=== PATIENT | female | born 1985 | race Caucasian/White ===

== ENCOUNTER 2022-03-09 16:05 | Emergency (ER) | payer BC ==
--- OUTSIDE RECORDS SUMMARY | 2022-03-09 16:07 | XMS REPORT | Continuity of Care Document ---
:1985 Author Organization [facility] t Address [address] [place] [address] Dr. Reynolds [address] [place] [id number] Care Team Providers Name Role Phone Unavailable Unavailable Unavailable Problems This patient has no known problems. Allergies, Adverse Reactions, Alerts This patient has no known allergies or adverse reactions. Medications This patient has no known medications. Procedures This patient has no known procedures. Results This patient has no known results.
--- NOTE | 2022-03-09 17:55 | RAD REPORT ---
EXAM DESCRIPTION: RAD - Lumbar Spine 3 Views - 03/09/2022 5:47 pm CLINICAL HISTORY: PAIN COMPARISON: LUMBAR SPINE 3 VIEWS dated 11/21/2011 FINDINGS: A three-view lumbar spine examination was performed. Lumbar bodies are normal in height and alignment. No fracture or acute bony process seen. L4-5 disc s pace narrowing has developed from prior imaging along with endplate spurring. There is calcification along the posterior aspect of the disc that is probably part of disc protrusion into the central trav l. No significant facet joint degenerative change. No pars defects identified. IMPRESSION: L4-5 degenerative disc disease with probable bulging or protruding disc material in the central canal. No fracture or acute bone finding identified. The possible disc herniation findings can be further addressed with an outpatient MRI study.
--- NOTE | 2022-03-09 17:56 | RAD REPORT ---
EXAM DESCRIPTION: RAD - Thoracic Spine Ap/Lat - 03/09/2022 5:47 pm CLINICAL HISTORY: PAIN COMPARISON: <Comparisons> FINDINGS: AP & lateral views of the thoracic spine were obtained. Thoracic bodies are normal in height and alignment. There are no acute or destructive bony processes seen. No disc space narrowing. No paraspinal masses are identified. IMPRESSION: Negative thoracic spine examination.
[2022-03-09] MEDS ORDERED: KETOROLAC 30 MG/ML INJ ONE (19:36)
[2022-03-09] MEDS ORDERED: MORPHINE 4 MG/ML SYR ONE (19:36)
[2022-03-09] MEDS ORDERED: LIDOCAINE 4% PATCH ONE (19:37)
--- NOTE | 2022-03-09 20:16 | ER ---
Nurse's Notes [facility] Name: Mitzi Cervantes Age: 36 yrs Sex: Female : 1985 Arrival Date: 03/09/2022 Time: 16:08 Bed 5 Private MD: Diagnosis: Lumbago with sciatica, left side Presentation: 03/09 16:34 Chief complaint: Patient states: mid-low back pain radiating to left buttocks that aa5 began 2-3 days ago. 16:35 Coronavirus screen: At this time, the client does not indicate any symptoms associated aa5 with coronavirus-19. Ebola Screen: Patient denies travel to an Ebola-affected area in the 21 days before illness onset. Initial Sepsis Screen: Does the patient meet any 2 criteria? HR > 90 bpm. Does the patient have a suspected source of infection? No. Patient's initial sepsis screen is negative. Risk Assessment: Do you want to hurt yourself or someone else? Patient reports no desire to harm self or others. Onset of symptoms was February 2022. 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 - Social history:: Smoking status: Patient denies any tobacco usage or history of. Screenin:43 Abuse screen: Denies threats or abuse. Denies injuries from another. Nutritional iw screening: No deficits noted. Tuberculosis screening: No symptoms or risk factors identified. Fall Risk None identified. Assessment: 19:42 General: Appears in no apparent distress. Behavior is calm, cooperative. Pain: iw Complains of pain in lumbar area and left low back. Neuro: Level of Consciousness is awake, alert, obeys commands, Oriented to person, place, time, situation, Moves all extremities. Full function. Cardiovascular: Patient's skin is warm and dry. Derm: Skin is intact, is healthy with good turgor. Musculoskeletal: Range of motion: intact in all extremities, Reports pain in back. 19:43 Reassessment:. iw Vital Signs: 16:35 BP 140 / 77; Pulse 96; Resp 16 S; Temp 97.6(TE); Pulse Ox 99% on R/A; aa5 ED Course: 16:08 Patient arrived in ED. rg4 16:20 Toby Toney PA is PHCP. cp 16:20 Toby Gonsalves MD is Attending Physician. cp 16:34 Arm band placed on. aa5 16:35 Triage completed. aa5 17:49 XRAY Lumbar Spine (3 Views) In Process Unspecified. EDMS 17:49 XRAY Thoracic Spine (Ap/lat) In Process Unspecified. EDMS 19:28 Giancarlo Solomon, KAUR is Primary Nurse. as6 19:43 No provider procedures requiring assistance completed. Patient did not have IV access iw during this emergency room visit. 20:46 Patient has correct armband on for positive identification. kl Administered Medications: 19:41 Drug: Lidoderm Patch 5 % (700 mg/patch) 1 patches {Note: left lower back.} Route: iw Topical; Site: affected area; 19:41 Drug: Ketorolac 60 mg Route: IM; Site: right vastus lateralis; iw 19:41 Not Given (Duplicate Order): morphine 10 mg IM once iw 19:41 Drug: morphine 8 mg Route: IM; Site: right vastus lateralis; iw Medication: 20:46 VIS not applicable for this client. Outcome: 20:15 Discharge ordered by . cp 20:46 Discharged to home via wheelchair. kl 20:46 Condition: improved 20:46 Discharge instructions given to patient, Instructed on discharge instructions, follow up and referral plans. medication usage, Demonstrated understanding of instructions, follow-up care, medications, Prescriptions given X 4. 20:47 Patient left the ED. kl Signatures: Dispatcher [employer] EDMS Venecia Rouse RN RN kl Williams, Irene, RN RN Temitope Hopson RN RN aa5 Toby Toney PA PA cp Garcia, Rubi rg4 Giancarlo Solomon RN RN as6 Corrections: (The following items were deleted from the chart) 19:40 19:40 morphine 10 mg IM in right vastus lateralis iw iw
--- NOTE | 2022-03-09 20:16 | EDPHYS ---
Physician Documentation [facility] Name: Mitzi Cervantes Age: 36 yrs Sex: Female : 1985 Arrival Date: 03/09/2022 Time: 16:08 Bed 5 Private MD: ED Physician Toby Gonsalves HPI: 03/09 17:00 This 36 yrs old Female presents to ER via Wheelchair with complaints of Back Pain. cp 17:00 The patient presents with pain that is acute, with no known mechanism of injury. The cp symptoms are located in the mid back area. Onset: The symptoms/episode began/occurred 3 day(s) ago. The pain radiates to the left buttock and left leg. Associated signs and symptoms: Pertinent negatives: abdominal pain, chest pain, constipation, fever, incontinence, numbness, urinary retention, weakness. The problem was sustained from unknown cause. Modifying factors: the patient symptoms are aggravated by bending, movement, standing. Severity of symptoms: in the emergency department the symptoms are unchanged, despite taking prescribed Celebrex. Patient reports history of lumbar bulging disc. Historical: - Allergies: 16:35 liquid codeine (glucose problem); aa5 - PMHx: 16:35 Diabetes mellitus; Anxiety; Depressive disorder; Herniated disc; chronic yeast aa5 infection; - PSHx: 16:35 ectopic (removal of R fallopian tube); Cholecystectomy; aa5 - Immunization history:: Adult Immunizations unknown. - Social history:: Smoking status: Patient denies any tobacco usage or history of. ROS: 17:05 Constitutional: Negative for body aches, chills, fever, poor PO intake. cp 17:05 Eyes: Negative for injury, pain, redness, and discharge. cp 17:05 Neck: Negative for pain with movement, pain at rest, stiffness. 17:05 Cardiovascular: Negative for chest pain, palpitations. 17:05 Respiratory: Negative for cough, shortness of breath, wheezing. 17:05 Abdomen/GI: Negative for abdominal pain, nausea, vomiting, and diarrhea, constipation, bowel incontinence. 17:05 Back: Positive for pain at rest, pain with movement, of the mid back area. 17:05 : Negative for urinary symptoms, difficulty urinating, bladder incontinence, vaginal bleeding, vaginal discharge. 17:05 Neuro: Negative for altered mental status, headache, numbness, tingling, weakness, saddle anesthesia. 17:05 All other systems are negative. Exam: 17:10 Constitutional: The patient appears in no acute distress, alert, awake, non-toxic, well cp developed, well nourished, obese, uncomfortable. 17:10 Head/Face: Normocephalic, atraumatic. cp 17:10 Eyes: Periorbital structures: appear normal, Conjunctiva: normal, no exudate, no injection, Sclera: no appreciated abnormality, Lids and lashes: appear normal, bilaterally. 17:10 ENT: External ear(s): are unremarkable, Nose: is normal, Mouth: Lips: moist, Oral mucosa: pink and intact, moist, Posterior pharynx: Airway: no evidence of obstruction, patent. 17:10 Neck: ROM/movement: is normal, is supple, without pain, no range of motions limitations. 17:10 Chest/axilla: Inspection: normal. 17:10 Cardiovascular: Rate: normal, Rhythm: regular. 17:10 Respiratory: the patient does not display signs of respiratory distress, Respirations: normal, no use of accessory muscles, no retractions, labored breathing, is not present, Breath sounds: are clear throughout, no decreased breath sounds. 17:10 Abdomen/GI: Inspection: obese Bowel sounds: active, all quadrants, Palpation: abdomen is soft and non-tender, in all quadrants. 17:10 Back: pain, that is severe, of the mid back area and left low back, ROM is painful, with all movement, Straight leg raises: of both lower extremities does not illicit pain. 17:10 Skin: no rash present. 17:10 Neuro: Orientation: to person, place \T\ time. Mentation: is normal, Motor: moves all fours, strength is normal, Sensation: is normal, Gait: is steady, Deep tendon reflexes are 2+ (normal) in the right patellar, right Achilles, left patellar and left Achilles. Vital Signs: 16:35 BP 140 / 77; Pulse 96; Resp 16 S; Temp 97.6(TE); Pulse Ox 99% on R/A; aa5 MDM: 17:08 Patient medically screened. [facility] 20:15 Data reviewed: vital signs, nurses notes, lab test result(s), urinalysis, radiologic cp studies, plain films. 20:15 Differential diagnosis: Cholelithiasis Pyelonephritis Ureterolithiasis sciatica, cauda cp equina, spinal stenosis. Test interpretation: by ED physician or midlevel provider: plain radiologic studies. Counseling: I had a detailed discussion with the patient and/or guardian regarding: the historical points, exam findings, and any diagnostic results supporting the discharge/admit diagnosis, lab results, radiology results, the need for outpatient follow up, a family practitioner, to return to the emergency department if symptoms worsen or persist or if there are any questions or concerns that arise at home. Response to treatment: the patient's symptoms have markedly improved after treatment, and as a result, I will discharge patient. 03/09 20:40 Order name: Urine Dipstick-Ancillary EDUT 03/09 17:17 Order name: XRAY Lumbar Spine (3 Views); Complete Time: 19:48 03/09 19:48 Interpretation: Report reviewed. 03/09 17:17 Order name: XRAY Thoracic Spine (Ap/lat); Complete Time: 19:48 03/09 19:48 Interpretation: Report reviewed. 03/09 20:41 Order name: Urine --Ancillary (enter results) oe 03/09 16:51 Order name: Urine Dipstick-Ancillary (obtain specimen); Complete Time: 20:40 cp 03/09 16:51 Order name: Urine Test (obtain specimen); Complete Time: 20:40 cp Administered Medications: 19:41 Drug: Lidoderm Patch 5 % (700 mg/patch) 1 patches {Note: left lower back.} Route: iw Topical; Site: affected area; 19:41 Drug: Ketorolac 60 mg Route: IM; Site: right vastus lateralis; iw 19:41 Not Given (Duplicate Order): morphine 10 mg IM once iw 19:41 Drug: morphine 8 mg Route: IM; Site: right vastus lateralis; iw Disposition Summary: 03/09/22 20:15 Discharge Ordered Location: Home cp Problem: new cp Symptoms: have improved cp Condition: Stable cp Diagnosis - Lumbago with sciatica, left side cp Followup: cp - With: Private Physician - When: 2 - 3 days - Reason: Recheck today's complaints Discharge Instructions: - Discharge Summary Sheet cp - Acute Back Pain, Adult cp - Sciatica cp Forms: - Medication Reconciliation Form cp - Thank You Letter cp - Antibiotic Education cp - Prescription Opioid Use cp Prescriptions: - Baclofen 10 mg Oral Tablet - take 1 tablet by ORAL route 3 times per day; 20 tablet; Refills: 0, Product cp Selection Permitted - Lidoderm 5 % Topical adhesive patch,medicated - apply 1 patch by TOPICAL route once daily; 10 patch; Refills: 0, Product cp Selection Permitted - Diclofenac Sodium 75 mg Oral Tablet Sustained Release - take 1 tablet by ORAL route 2 times per day; 30 tablet; Refills: 0, Product cp Selection Permitted - Medrol (Adonis) 4 mg Oral Tablets, Dose Pack - take 1 tablet by ORAL route as directed - follow package instructions; 1 cp packet; Refills: 0, Product Selection Permitted Signatures: Dispatcher [employer] EDToby Robertson MD MD cha Williams, Irene, RN RN iw Calderon, Audri, RN RN aa5 Toby Toney PA PA cp Corrections: (The following items were deleted from the chart) 20:46 16:51 UA MICROSCOPIC+[id number].LAB.BRZ ordered. EDMS EDMS
[2022-03-09 20:39] LABS: Urine Blood Trace-intact (Negative); Urine Glucose 2+ (Negative); Urine Protein Negative (Negative)
[2022-03-11 08:48] VITALS: BP 140/77; TEMP 97.6; O2SAT 99
== END 2022-03-09 20:47 | disposition home or self-care (01) ==
LOC: ER 16:05
DX: M54.42 Lumbago with sciatica, left side (principal); E11.9 Type 2 diabetes mellitus without complications; Z88.5 Allergy status to narcotic agent
CPT/HCPCS: 81025; 81003; 72100; 72070; 96372; 99283; J2001